=== PATIENT | female | born 1965 | race Caucasian/White ===

== ENCOUNTER 2020-11-14 10:58 | Observation (INO) | payer MEDICAID, SELFPAY ==
[2020-11-14] VITALS (41 sets, daily range): BP systolic 112–134; BP diastolic 45–87; PULSE 63–94; RESP 12–22; TEMP 36.4–36.9; O2SAT 96–100
--- NOTE | 2020-11-14 10:45 | RT.EKG_ITS ---
APPROVED REPORT Exam: Resting ECG Patient Location: E HR:82 bpm ECG Measurements Heart Rate 82 AXIS [place] 143 P 47 QRSd 89 QRS 59 QT 359 T -17 QTc 421 Conclusion Sinus rhythm...normal P axis, V-rate 60- [address] [place] [address] depression, lateral leads, nonspecific No STEMI
--- NOTE | 2020-11-14 10:59 | ED.GENADUL_ITS ---
Discharge Plan Disposition Patient Disposition: [facility] INPATIENT Condition: Stable Discharge Details Clinical Impression: Chest discomfort, Light-headedness, Numbness and tingling in left arm Primary Care Provider: Joyce Arroyo ED Provider: Manoj Roberts Luther Meds and New Rx's Prescriptions: No Action cholecalciferol (vitamin D3) [Vitamin D3] 2,000 UNIT capsule 2,000 unit PO DAILY RF: 0 cyclobenzaprine 10 MG tablet 10 mg PO TID PRN PRNQty: 20 RF: 0 naproxen 500 MG tablet 500 mg PO BID PRN PRNQty: 30 RF: 0 Medical Decision Making 55-year-old female with no significant past medical history but family history of cardiac disease presenting with lightheadedness nausea left chest shoulder discomfort with numbness in the left arm. Symptoms have since resolved. EKG concerning for ST changes laterally and less so inferiorly. No previous EKG to compare to. Asymptomatic in ED. Aspirin ordered. Cardiac labs and chest x-ray ordered. IV established. Will repeat EKG when she returns from chest x-ray. With ST changes present no old to compare strongly consider admission for furt her work-up. Laboratory studies unremarkable. Chest x-ray normal. Repeat EKG about an hour after the first shows normalization of the precordial lateral lead depression previously there. Patient has remained asymptomatic in the department. Case discussed with hospitalist. Will keep in ED for a repeat second troponin. If negative admit here for further work-up. If positive attempt to transfer to tertiary center. Repeat troponin remains flat. Third EKG unchanged from second. Only first EKG had ST depression in the lateral precordial leads. Patient asymptomatic here. Patient accepted for admission to hospitalist service. HPI General Mode of arrival: ambulatory . Date/Time Provider Initiated Documentation: 11/14/20 10:59 . Limitations to Documentation: no limitations . Information obtained by: patient, RN notes reviewed and old records reviewed . HPI Narrative: Patient presents to ED with episode of lightheadedness, nausea, discomfort in the left upper chest/shoulder with numbness and tingling in the left arm while driving. Symptoms have since resolved since arriving in the ED. Patient reports similar lightheadedness and tingling in left arm on Friday but did not experience any nausea or discomfort. She has not had anything similar to this in the past. She does not smoke. She has no history of elevated cholesterol, hypertension, diabetes. There is a strong family history of cardiac disease. She denies any leg pain or leg swelling. She does not feel short of breath. She has no diaphoresis. She had no back or abdominal pain. Related Data Home Medications Medication Instructions Recorded Confirmed cholecalciferol (vitamin D3) 2,000 unit PO DAILY 06/07/13 11/14/20 [Vitamin D-3] cyclobenzaprine 10 mg PO TID PRN PRN #20 tab 06/07/13 11/14/20 naproxen 500 mg PO BID PRN PRN #30 tablet 06/07/13 11/14/20 Previous Rx's Medication Instructions Recorded cyclobenzaprine 10 mg PO TID PRN PRN #20 tab 06/07/13 naproxen 500 mg PO BID PRN PRN #30 tablet 06/07/13 Allergies Allergy/AdvReac Type Severity Reaction Status Date / Time No Known Allergies Allergy Unverified 11/14/20 11:03 Review of Systems Narrative: 06/07 Review of Systems completed and is negative except as stated above in HPI (Systems reviewed: Const, Eyes, ENT, Resp, CV, GI, , MSK, Skin, Neuro) [facility] Medical History Diverticulitis Surgical History No significant past surgical history Social History Smoking/Tobacco Use Status: Never Smoking risk assessment performed?: Yes Alcohol Intake: current Alcohol Intake frequency: 3 or more drinks per day Drug use: Never Substance use type: does not use Do you feel safe at home: Yes Do you feel safe in your relationship?: Yes Exam Narrative Exam Narrative: Const: WDWN female in NAD. HEENT: NC/AT. Normal facial exam. Eyes: Normal conjunctiva and sclera. Neck: Supple. Trachea midline. Lungs: Normal respiratory effort. Lungs are clear. Cor: RRR without murmur/gallop. Good radial pulses. GI: Soft. NT/ND. No guarding or rebound Neuro: A+O x 3. Normal speech, mentation, gait. Cranial nerves II - XII grossly intact. No gross motor or sensory deficit. Ext: No C/C/E. No calf tenderness. Skin: Warm and dry without rash.
--- NOTE | 2020-11-14 11:15 | DI.RAD_ITS ---
EXAM: XR CHEST 2V PA LATERAL CLINICAL HISTORY: CP TECHNIQUE: 2D digital imaging was performed. COMPARISON: No exams were available for comparison FINDINGS: MEDIASTINUM: Normal. HEART: Normal. PULMONARY VASCULATURE: Normal. LUNGS: Clear. PLEURAL SPACE: No pleural effusion or pneumothorax. BONE:Within normal limits for the patient's age. OTHER FINDINGS:Normal. IMPRESSION: No acute pulmonary findings. DATA REPOSITORY: RADIATION DOSE DELIVERED:
[2020-11-14] MEDS: Aspirin 81 MG CHEW 324 MG CH (11:27)
--- NOTE | 2020-11-14 11:30 | RT.EKG_ITS ---
APPROVED REPORT Exam: Resting ECG Patient Location: E HR:72 bpm ECG Measurements Heart Rate 72 AXIS [place] 152 P 46 QRSd 83 QRS 69 QT 374 T 13 QTc 411 Conclusion Sinus rhythm...normal P axis, V-rate 60- [address] segments laterally. No STEMI
[2020-11-14 11:33] LABS: Abs Immature Grans 0.02 10^3/uL (0.0-0.06); Absolute Basophil Count 0.03 10^3/uL (0.0-0.2); Absolute Eosinophil Count 0.15 10^3/uL (0.0-0.7); Absolute Lymphocyte Count 2.11 10^3/uL (1.2-3.4); Absolute Monocyte Count 0.53 10^3/uL (0.1-0.8); Absolute Neutrophil Count 4.42 10^3/uL (1.2-6.7); Basophils % 0.4; Eosinophils % 2.1; HCT 42.8 % (36.0-46.0); HGB 14.7 g/dL (11.2-15.7); Immature Grans % 0.3; Lymphocytes % 29.1; MCH 30.8 pg (27.0-33.0); MCHC 34.3 % (32.0-36.0); MCV 89.7 fL (80-95); MPV 8.2 fL (8.0-11.0); Monocytes % 7.3; Neutrophils % 60.8; Nucleated RBC 0 %; Platelet Count 294 10^3/uL (130-400); RBC 4.77 10^6/uL (3.93-5.22); RDW 11.7 % (11.7-14.6); RDW-SD 38.4 fL; WBC 7.26 10^3/uL (4.4-10.8)
[2020-11-14 11:45] LABS: ALT 36 U/L (14-59); AST 20 U/L (15-37); Alkaline Phosphatase 81 U/L (46-116); Anion Gap 11.3 mmol/L (3-11); BUN 9 mg/dL (7-18); Bilirubin, Total 0.4 mg/dL (0.2-1.0); CO2 26.7 mmol/L (21.0-32.0); CREATININE 0.6 mg/dL (0.55-1.02); Chloride 102 mmol/L (98-107); Glucose 106 mg/dL (74-106); Potassium 3.7 mmol/L (3.5-5.1); Sodium 140 mmol/L (136-145); Total Protein 8.2 g/dL (6.4-8.2)
[2020-11-14 11:46] LABS: Troponin I < 0.05 ng/mL (<0.06)
[2020-11-14 12:04] LABS: D-Dimer 305 ng/mlFEU (<500)
--- NOTE | 2020-11-14 14:00 | RT.EKG_ITS ---
APPROVED REPORT Exam: Resting ECG Patient Location: E HR:70 bpm ECG Measurements Heart Rate 70 AXIS [place] 157 P 50 QRSd 83 QRS 71 QT 382 T 16 QTc 412 Conclusion Sinus rhythm...normal P axis, V-rate 60- 99 Normal [place] There are no significant changes compared to prior EKG performed on 11/14/2020 at 11:58.
[2020-11-14 14:21] LABS: Troponin I < 0.05 ng/mL (<0.06)
--- NOTE | 2020-11-14 17:43 | HPE_ITS ---
Date of service: 11/14/20 Time of Service: 17:43 Assessment and Plan Assessment and plan (1) Acute electrocardiogram changes: Status: Acute Assessment and plan: In setting of dizziness, palpitations, LUE tingling - concern for unstable angina vs Prinze-Metal angina. Monitor on tele, continue to trend troponins. Obtain echo in am. Depending on results will plan for MPI vs cardiac cath as outpatient. (2) Palpitations: Status: Acute Assessment and plan: Check TSH. ?side effect of the Ukrainian herbal medication the patient is taking. (3) Light-headedness: Status: Acute Assessment and plan: As above (4) Anxiety: Status: Chronic Assessment and plan: The patient needs to get plugged in with a new mental health provider. Hers has retired. Will ask care managers to provide resources. (5) Goiter: Status: Acute Assessment and plan: Check TSH/FT4 (6) DVT prophylaxis: Status: Acute Assessment and plan: SC enoxaparin, TEDs, SCDs (7) Discharge planning issues: Status: Acute Assessment and plan: DNI, per my conversation with her Obs History of Present Illness History of Present Illness Chief Complaint: chest discomfort Narrative: Ms Cartwright is a 55 year old female with PMHx of obesity, an eating disorder (bulemia), as well as a highly stressful personal situation (son committed suicide 1.5 years ago, stress at work) with strong family hx of CAD who presented to [facility] ED today after tingling in her left arm and lightheadedness while driving a car today. This was accompanied by palpitations and shortness of breath. The patient thougth she might pass out. She also describes the feeling as panicky. She was able to drive herself home and her spouse took her to the ED. The symptoms had resolved by the time the patient had presented to the ED. They lasted about 10-15 minutes. She had a similar episode 3 days ago while sitting and drinking coffee, but this one lasting several seconds. At no point did the patient report chest pain or chest discomfort to me (evidently, this was reported in the ED. The patient has had two negative troponins, but her original EKG showed inferolateral ST depressions which disappeared on EKG #2 and 3. The patient was given a full dose of aspirin in the ED. Hospitalists were asked to take over care. Review of Systems All systems reviewed & are unremarkable except as noted in HPI and below PFSH Medical History (Updated 11/14/20 @ 18:34 by Tayler Goodman MD) Diverticulitis Eating disorder Obesity (BMI 30.0-34.9) Surgical History (Updated 11/14/20 @ 18:23 by Tayler Goodman MD) No significant past surgical history S/P tonsillectomy Family History (Updated 11/14/20 @ 18:27 by Tayler Goodman MD) Mother , at age of 64 from an [place] Heart disease Diabetes Hypertension Father Heart disease Diabetes Hypertension Maternal Grandmother Diabetes Maternal Grandfather Diabetes Paternal Grandmother Diabetes Paternal Grandfather Diabetes Self No problems noted. Sister Diabetes Hypertension Sister Diabetes Hypertension Brother Diabetes Hypertension Paternal Aunt Breast cancer Social History (Updated 11/14/20 @ 18:28 by Tayler Goodman MD) Smoking/Tobacco Use Status: Never Smoking risk assessment performed?: Yes Alcohol Intake: current Alcohol Intake frequency: holidays/special occasions only Alcohol type: wine Drug use: Never Substance use type: does not use Do you feel safe at home: Yes Do you feel safe in your relationship?: Yes Meds Home Medications and Allergies Allergies Allergy/AdvReac Type Severity Reaction Status Date / Time No Known Allergies Allergy Unverified 11/14/20 11:03 Home Medications Medication Instructions Recorded Confirmed Type Jared Lopez PO DAILY 11/14/20 History Exam Narrative Exam Narrative: General: Anxious obese Female, very stephen, A&Ox3, tearful during some of our interview Neurological: A&Ox3, no focal deficits Psychiatric: anxious/tearful Skin: Stephen, no lesions HEENT: Atraumatic, normocephalic, EOMI, MMM, clear oropharynx, no submandibular or cervical lymphadenopathy, slight goiter, no JVD Cardiovascular: RRR, no m/r/g Lungs: CTAB Gastrointestinal: soft, nontender, nondistended Genitourinary: deferred Extremities: +1 BLE edema (chronic), no c/c. Results Imaging Additional studies: EKG #1: NSR, HR 82, inferolateral ST depressions. EKG #2: NSR, HR 72, no acute ischemia EKG #3: NSR, HR 70, no acute ischemia CXR: No acute pulmonary findings. Labs Result diagrams: 11/14/20 11:23 11/14/20 11:23 Labs: Laboratory Results - last 24 hr 11/14/20 11/14/20 11/14/20 11:23 11:23 11:23 WBC 7.26 RBC 4.77 Hgb 14.7 Hct 42.8 MCV 89.7 MCH 30.8 MCHC 34.3 RDW 11.7 Plt Count 294 MPV 8.2 Immature Gran % 0.3 Neutrophils % 60.8 Lymphocytes % 29.1 Monocytes % 7.3 Eosinophils % 2.1 Basophils % 0.4 Nucleated RBC % 0 Absolute Neutrophils 4.42 Absolute Lymphocytes 2.11 Absolute Monocytes 0.53 Absolute Eosinophils 0.15 Absolute Basophils 0.03 D-Dimer 305 Sodium 140 Potassium 3.7 Chloride 102 Carbon Dioxide 26.7 Anion Gap 11.3 H BUN 9 Creatinine 0.6 Estimated GFR/1.73 m2 >= 60.00 Glucose 106 Calcium 9.0 Magnesium 2.0 Total Bilirubin 0.4 AST 20 ALT 36 Alkaline Phosphatase 81 Troponin I < 0.05 Total Protein 8.2 Albumin 4.0 11/14/20 14:01 WBC RBC Hgb Hct MCV MCH MCHC RDW Plt Count MPV Immature Gran % Neutrophils % Lymphocytes % Monocytes % Eosinophils % Basophils % Nucleated RBC % Absolute Neutrophils Absolute Lymphocytes Absolute Monocytes Absolute Eosinophils Absolute Basophils D-Dimer Sodium Potassium Chloride Carbon Dioxide Anion Gap BUN Creatinine Estimated GFR/1.73 m2 Glucose Calcium Magnesium Total Bilirubin AST ALT Alkaline Phosphatase Troponin I < 0.05 Total Protein Albumin Last Vital Signs Temp 36.8 C 11/14/20 16:15 Pulse 65 11/14/20 16:15 Resp 16 11/14/20 16:15 BP 134/83 11/14/20 16:15 Pulse Ox 98 11/14/20 16:15 COVID-19 Screening Have you, or household traveled for leisure in last 14 days?: No Had IN PERSON contact w/suspected or confirmed C-19 person: No
[2020-11-14 20:34] LABS: Source Nasal/Nares
[2020-11-14 20:44] LABS: Troponin I < 0.05 ng/mL (<0.06)
[2020-11-14 22:39] LABS: COVID-19 PCR Negative (Negative)
[2020-11-15] VITALS (7 sets, daily range): BP systolic 104–122; BP diastolic 65–87; PULSE 66–89; RESP 14–18; TEMP 35.9–36.6; O2SAT 95–100
[2020-11-15 06:54] LABS: Hemoglobin A1C 5.7 % (<5.7)
[2020-11-15 07:03] LABS: BUN 10 mg/dL (7-18); CREATININE 0.6 mg/dL (0.55-1.02); Calcium 8.8 mg/dL (8.5-10.1); Calculated LDL 172 mg/dL (<100); Chloride 105 mmol/L (98-107); Cholesterol 264 mg/dL (<200); Glucose 95 mg/dL (74-106); HDL Cholesterol 77 mg/dL (40-60); Potassium 3.9 mmol/L (3.5-5.1); Sodium 142 mmol/L (136-145); TSH (W/Ref FT4) 2.11 uIU/mL (0.36-3.74); Triglyceride 79 mg/dL (<150)
--- NOTE | 2020-11-15 07:30 | RT.EKG_ITS ---
APPROVED REPORT Exam: Resting ECG Patient Location: I HR:69 bpm ECG Measurements Heart Rate 69 AXIS [place] 150 P 41 QRSd 88 QRS 64 QT 385 T 12 QTc 411 Conclusion Sinus rhythm...normal P axis, V-rate 60- 99
[2020-11-15] MEDS: Aspirin E.C. 81 MG TABEC PO (08:10)
--- NOTE | 2020-11-15 09:42 | PDOC.CMIN ---
- If Service Date Differs Date of service: 11/15/20 Time of Service: 09:42 Care Management Initial Assess REASON FOR HOSPITALIZATION:: Chest Pain PAST MEDICAL HISTORY/PAST SURGICAL HISTORY:: Medical History. Diverticulitis. Eating disorder. Obesity (BMI 30.0-34.9). Surgical History. No significant past surgical history. S/P tonsillectomy PREVIOUS FUNCTIONAL STATUS/SOCIAL/FAMILY SUPPORTS:: Karie lives in [place], alone. She moved to [place] 20 years ago with her son, who by suicide about a year ago. She has another son who lives in [place], and two grandchildren. She works for [employer], providing care for autistic clients. She is independent at baseline. CURRENT FUNCTIONAL STATUS:: Karie was sitting up in her chair when CM met with her. She reported that she has had a lot of stress in her life, which she feels is a large contributing factor that brought her to the hospital. She told CM about the untimely of her son, by suicide, and expressed that she has not yet processed all of the emotions that she feels about losing him so soon. She has a living son, who resides in [place], and he has two children that she loves, but she is still suffering with the grief of her loss. She also reported that she has a stressful job, and was working overnight (awake), which was too draining for her, and she recently set limits with her boss as it was unsustainable. She only works molded parts inspector, and lives alone. She reported that her therapist retired last fall, and she has yet to be connected to another. CM suggested [facility], but she reported that she wants to wait for her PCP office to hire another therapist for her convenience of location and appointments in the same building. CM called her PCP office, who will connect her to a radiology specialist within their network. CM connected Karie with [employer], to assist with her insurance needs. CM will continue to follow. ADVANCE DIRECTIVES:: None on file, CM will offer forms. Has patient been provided with info about the portal/API?: Yes Did the patient sign up for the portal?: No CODE STATUS:: DNI INSURANCE COVERAGE / FINANCIAL ISSUES:: Self pay. CM will send a referral to [facility] and provide financial assistance packet. CURRENT HOME/COMMUNITY SERVICES/EQUIPMENT:: No current services or equipment. PRIMARY CARE PHYSICIAN:: Joyce Arroyo POTENTIAL DISCHARGE NEEDS:: Referral to [facility], [facility]- insurance needs, follow up appointments PATIENT/FAMILY EDUCATION NEEDS:: Review discharge instructions regarding activity levels and medications, discussion of self care needs. ANTICIPATED BARRIERS TO DISCHARGE:: None identified. TRANSPORTATION:: Via private vehicle by family. PLAN:: Anticipate Karie will return home when medically cleared by MD. CM will send a referral to [facility] for insurance needs, as well as [facility] for mental health counseling. She will be driven home via private vehicle by family. She will follow up with her PCP and discharge plan of care. CM will continue to follow.
[2020-11-15] MEDS: Normal Saline Flush 10 ML SYR IVP ×2 (11:08→16:59)
--- NOTE | 2020-11-15 14:20 | CHAPLAIN ---
Karie was sitting up in a chair then I visited. She told me she was feeling better. She'd come into the ED last night not feeling well. During our conversation she said that her son by suicide a year and three months ago while she was in [place]. She had been attending a support group in [place], for suicide survivors, but the group stopped meeting due to COVID precautions. Karie thinks the group maybe be meeting on line now or starting to meet person, outside and she is going to look into that. Karie lives in [place], and belongs to the [employer] hol[employer], according to our spiritism roster. She said that her holiness knows she is here and many people from many different places are praying for her. She sees whatever is going on with her now, as part of God's plan for her. She has another son who lives out of state he and his will be having their second baby soon. her brought her to the ED. Karie asked for a copy of [employer], which I gave her, along with a prayer shawl.
--- NOTE | 2020-11-15 14:53 | W.PM.PROGNOT ---
Date of Service Date of service: 11/15/20 Time of Service: 14:55 Assessment and Plan Assessment and plan (1) Acute electrocardiogram changes: Status: Acute Assessment and plan: In setting of dizziness, palpitations, LUE tingling - concern for unstable angina vs Prinze-Metal angina. Continue to monitor on tele. NPO for stress test in am. Add statin due to hyperlipidemia on fasting panel. (2) Palpitations: Status: Resolved Assessment and plan: TSH ok. Continue to monitor on tele. ? anxiety +/- side effect of the Micronesian herbal medication the patient is taking. (3) Light-headedness: Status: Resolved Assessment and plan: As above (4) Hyperlipidemia: Status: Acute Assessment and plan: start atorvastatin (5) Anxiety: Status: Chronic Assessment and plan: Outpatient mental health referral has been set up (6) Goiter: Status: Chronic Assessment and plan: TSH ok. Follow up as outpatient. (7) DVT prophylaxis: Status: Acute Assessment and plan: SC enoxaparin, TEDs, SCDs (8) Discharge planning issues: Status: Acute Assessment and plan: DNI, per my conversation with her Keep in Obs status Subjective Subjective Interval history since last seen: Ms Cartwright had not had any arrhythmic events on tele and has not had any more sx. She denies dizziness, chest pain, shortness of breath, nausea. She spoke with care management - an outpatient mental health referral has been placed. Exam Narrative Exam Narrative: General: Anxious obese Female, laying comfortably in bed,napping, easily arousable HEENT: EOMI, MMM Cardiovascular: RRR, no m/r/g Lungs: CTAB Gastrointestinal: soft, nontender, nondistended Extremities: +1 BLE edema (chronic), no c/c. Objective Last Vital Signs Temp 35.9 C L 11/15/20 10:48 Pulse 85 11/15/20 10:48 Resp 14 11/15/20 10:48 BP 122/87 11/15/20 10:48 Pulse Ox 100 11/15/20 10:48 Laboratory Results - last 24 hr 11/14/20 11/14/20 11/15/20 15:30 20:15 06:10 Sodium 142 Potassium 3.9 Chloride 105 Carbon Dioxide 27.0 Anion Gap 10.0 BUN 10 Creatinine 0.6 Estimated GFR/1.73 m2 >= 60.00 Glucose 95 Hemoglobin A1c Calcium 8.8 Magnesium 2.0 Troponin I < 0.05 Triglycerides 79 Total Cholesterol 264 H LDL Cholesterol, Calc 172 H HDL Cholesterol 77 TSH 2.11 COVID-19 Source Nasal/nares SARS-CoV-2 (PCR) Negative 11/15/20 06:10 Sodium Potassium Chloride Carbon Dioxide Anion Gap BUN Creatinine Estimated GFR/1.73 m2 Glucose Hemoglobin A1c 5.7 Calcium Magnesium Troponin I Triglycerides Total Cholesterol LDL Cholesterol, Calc HDL Cholesterol TSH COVID-19 Source SARS-CoV-2 (PCR) Objective Narrative Objective Narrative: Echo: LVEF 60%, no LV wall motion abnromalities, RVSP 27 mmHg, mitral annular calcifications, mild mitral regurgitation.
[2020-11-15] MEDS: Atorvastatin 40 MG TAB PO (20:02)
[2020-11-16] MEDS: Normal Saline 1,000 ML 150 ML IV ×2 (05:15→11:36)
[2020-11-16 07:24] VITALS: BP 122/76; PULSE 67; RESP 19; TEMP 36.7; O2SAT 97
--- NOTE | 2020-11-16 08:00 | DI.NM_ITS ---
APPROVED REPORT Exam: Exercise Treadmill Patient Location: In-Patient Room/Bed: [facility] Stress Nurse: Kayce Vazquez RN Ordering Provider:GRAZYNA GONZALES, Contact Number: BMI: 32.57 Baseline Rhythm: Sinus Rhythm Comment: occasional PVC Indications: EKG CHANGES Medical History Medical History: HLD, Palpitations, Anxiety Cardiac Medications: None. Allergies: No known drug allergies Cardiac Risk Factors: Hyperlipidemia, FHX of CAD Previous Cardiac Procedures: None. Pretest Chest Pain Characteristics: None. Exercise History: Physically active Physical Disabilities: None. Lung Sounds: Clear to auscultation Heart Sounds: Regular Stress Test Details Test: Exercise stress testing was performed using a Claudio protocol. Nuclear Acquisition: Rest Tc-99m/Stress Tc-99m 1 day Rest Isotope: Tc-99m Sestamibi. Dose: 10.8 Date: 11/16/20 Injection Time: 1315 Stress Isotope: Tc-99m Sestamibi. Dose: 36.8 Date: 11/16/20 Injection Time: 1510 HR Resting HR Supine: 72 bpm Max Heart Rate (APMHR): 167 bpm Resting HR Standin bpm Target HR (85% APMHR): 141 bpm Max HR Achieved: 167 bpm % of APMHR: 100 Recovery HR: 87 bpm HR response to stress: Normal HR response to stress BP Resting BP Supine: 120/82 mmHg Resting BP Standin/88 mmHg Max BP: 154/78 mmHg Recovery BP: 116/76 mmHg BP response to stress: Normal blood pressure response to stress. ECG Resting ECG: Sinus Rhythm Ectopy: occasional PVC. Stress ECG: Sinus Tachycardia ST Change: No significant ST segment changes noted Arrhythmia: PVCs, couplets Recovery ECG: Sinus Rhythm Recovery ST Change: No significant ST segment changes noted Recovery Arrhythmia: occasional PVC Clinical Reason for Termination: Dizziness Stress Symptoms: Dizziness Exercise duration: 10 min00 sec Highest Stage Reached: Stage 4: 4.2 mph at 16% grade. Exercise capacity: 11.78 METs Fallon Treadmill Score: 9.2 Rate Pressure Product: [id number] Stress ECG Conclusion 1. Patient exercised for 10 minutes (12 METS). Patient had dizziness associated with exertion. 2. The patient's blood pressure and heart rate augmented appropriately with exertion. 3. There is no evidence of ischemia on the ECG portion of the exam. Fallon Treadmill Score is 9.2 which is Low risk. Stress Test Summary STAGE Time (mins) Speed (mph) Grade (%) HR BP SYMPTOMS METS Supine 72 120/82 Standing 82 124/88 1 3 1.7 10 114 126/80 4.6 2 6 2.5 12 130 7 3 9 3.4 14 152 136/88 10.2 4 12 4.2 16 Dizziness 12.9 1 min recovery 132 154/78 Symptoms resolved when exercise stopped. 3 min recovery 98 132/78 6 min recovery 87 116/76 MPI Conclusion Patient's ejection fraction was 63% with stress. There were no wall motion abnormalities. There was no evidence of ischemia on the imaging portion of the exam. This represents a normal SPECT stress test.
[2020-11-16 11:16] VITALS: BP 121/85; PULSE 75; RESP 18; TEMP 36.7; O2SAT 97
[2020-11-16 12:34] VITALS: PULSE 84
--- NOTE | 2020-11-16 14:15 | W.NUTRFU ---
Date of service: 11/16/20 Time of Service: 14:16 Nutritional Follow up NOTE: Pt admitted with chest pain. BMI indicates mild obesity. Following heart healthy diet with adequate intake. Not at nutritional risk at this time. Will continue to follow. Time Spent in Nutritional Counseling and Treatment: 0
--- NOTE | 2020-11-16 15:46 | DSE_ITS ---
Date of service: 11/16/20 Time of Service: 15:46 DS: Diagnosis Discharge Diagnosis (1) Acute electrocardiogram changes: Start date: 11/16/20 Start time: 15:47 Status: Acute Asessment and Plan: Admitted with dizziness, palpitations, LUE tingling, she was on tele, trops were negative, echo Left Ventricle The left ventricle is normal size. The left ventricular systolic function is normal. The left ventricular ejection fraction is within the normal range. There is normal left ventricular wall thickness. There is normal LV segmental wall motion. There is no ventricular septal defect visualized. LVEF is 60%. Right Ventricle The right ventricle is normal size. The right ventricular systolic function is normal. The RVSP is 26.9 mmHg. Atria The left atrium size is normal. The right atrium size is normal. The interatrial septum is intact with no evidence for an atrial septal defect. Aortic Valve The aortic valve is normal in structure. Aortic valve is trileaflet. There is no aortic valvular stenosis. Trace aortic regurgitation. Mitral Valve Mild mitral annular calcification. No evidence of mitral valve stenosis. Trace to mild mitral regurgitation. Tricuspid Valve The tricuspid valve is normal in structure. There is no tricuspid valve stenosis. Trace to mild tricuspid regurgitation. Pulmonic Valve The pulmonary valve is normal in structure. There is no pulmonic valvular stenosis. Trace pulmonic regurgitation. Great Vessels The aortic root is normal in size. The ascending aorta is normal in size. Aortic arch is normal in caliber. IVC is normal in size and collapses >50% with inspiration. The patient did experience dizziness on the treadmill but it disappeared when exam was over otherwise EF was 63%. Nuc stress normal (2) Hyperlipidemia: Start date: 11/16/20 Start time: 16:15 Status: Acute Asessment and Plan: Continue medication (3) Anxiety: Start date: 11/16/20 Start time: 16:15 Status: Chronic Asessment and Plan: Continue to find an outpatient therpaist to treat anxiety Above case discussed with Dr. goodman who is in agreement. Discharge Plan Disposition Patient Disposition: HOME Condition: Stable Discharge Details Reason For Visit: CHEST PAIN Admit Date/Time: 11/14/20 14:29 Admit Provider: Tayler Goodman Attending Provider: Tayler Goodman Primary Care Provider: Joyce Arroyo Hospital Course Hospital Course: 55 y.o female with PMH of obesity, eating disorder, and stressful home situations, with strong family hx of CAD, who was admitted to [facility] ED with tingling, to her left arm, and lightheadedness while driving her car. She had stated it was accompained with palpitations and SOB. She stated she felt panicky and like she was going to pass out. She drove home and was brought to the ED by her spouse. She was admitted for further work up. She did have a EKG in the ED that showed inferolateral ST depressions but were not present on EKG #2 and 3. Trops were negative, Due to EKG she was admitted for Echo and stress. She was given asa and stress test today revealed normal NPI. No ischemia. She should follow up as an outpatient with her PCP if this continues. This could be anxiety driven. She denies CP, SOB , N/V/D Home Meds and New Rx's Prescriptions: No Action Da Lonnie Lopez PO DAILY RF: 0 Discharge Instructions Instructions: Chest Pain (DC), Anxiety (DC) Additional Instructions: Follow up with your PCP if this continues to happen, this is not cardiac related All cardiac testing was negative. Stand Alone Forms: Nursing Discharge Form Activity:: Activity as Tolerated Equipment/Supplies:: No Equipment Needed Diet:: As Tolerated Discharge Orders Discharge Orders: Discharge Order (Routine); Ordered 11/16/20 Ordered By: Brianna Mondragon DS: Summary Time Spent with Patient providing and/or coordinating discharge services: Greater than 30 minutes Status at Discharge Functional status at discharge: independent ambulation Overall status at discharge: patient is back to baseline Mental Status: mental status grossly normal Speech and Movement: speech and movement normal Mood: congruent mood Affect: normal affect Exam Narrative Exam Narrative: General: Pleasant obese Female, laying comfortably in bed,napping, easily arousable HEENT: EOMI, MMM Cardiovascular: RRR, no m/r/g Lungs: CTAB Gastrointestinal: soft, nontender, nondistended Extremities: +1 BLE edema (chronic), no c/c. Psych Mental Status: mental status grossly normal Speech and Movement: speech and movement normal Mood: congruent mood Affect: normal affect DS: Data Vitals/I&O Vitals and I&O: Vital Signs Temperature 36.7 C 11/16/20 11:16 Temperature Source Temporal Artery Scan 11/16/20 11:16 Pulse 75 11/16/20 11:16 Pulse Rhythm Regular 11/16/20 08:16 Pulse 63 11/14/20 15:30 Respiratory Rate 18 11/16/20 11:16 Respiratory Effort 11/16/20 08:16 Respiratory Depth Normal 11/16/20 08:16 Respiratory Pattern Normal 11/16/20 08:16 Blood Pressure 121/85 11/16/20 11:16 Blood Pressure Mean 92 11/14/20 13:01 Blood Pressure Position Sitting 11/14/20 11:00 Pulse Oximetry 97 11/16/20 11:16 Oxygen Delivery Method Room Air 11/16/20 11:16 Oxygen Flow Rate 0 11/16/20 11:16 Pain Level 0 11/16/20 11:16 Comment 11/15/20 07:04 Intake & Output 11/15/20 11/16/20 11/16/20 23:59 11:59 23:59 Intake Total 730 / 1730 1152.5 / 1152.5 Output Total 1800 / 3050 1600 / 1600 Balance -1070 / -1320 -447.5 / -447.5 Weight 93.894 kg Intake: IV 952.5 / 952.5 Oral 720 / 1720 200 / 200 Output: Urine 1800 / 3050 1600 / 1600 Other: Urine Color Yellow Light Lore Urine Appearance Clear Clear Urine Odor Normal Normal Comment FOUND 900CC CLEAR YELLOW URINE IN HAT IN TOILET. Voiding Methods Toilet Toilet Data Completed and Pending Completed studies during hospitalization [Text1]: EXAM: Comprehensive 2D, Doppler, and color-flow Echocardiogram Patient Location: In-Patient Room/Bed: [facility] Watch And Clock Maker And Repairer: Portia Melo RDCS (AE) Indications: Abnormal EKG, Palpitations, F/H CAD Other Information Study Quality: Adequate Wall motion Left Ventricle The left ventricle is normal size. The left ventricular systolic function is normal. The left ventricular ejection fraction is within the normal range. There is normal left ventricular wall thickness. There is normal LV segmental wall motion. There is no ventricular septal defect visualized. LVEF is 60%. Right Ventricle The right ventricle is normal size. The right ventricular systolic function is normal. The RVSP is 26.9 mmHg. Atria The left atrium size is normal. The right atrium size is normal. The interatrial septum is intact with no evidence for an atrial septal defect. Aortic Valve The aortic valve is normal in structure. Aortic valve is trileaflet. There is no aortic valvular stenosis. Trace aortic regurgitation. Mitral Valve Mild mitral annular calcification. No evidence of mitral valve stenosis. Trace to mild mitral regurgitation. Tricuspid Valve The tricuspid valve is normal in structure. There is no tricuspid valve stenosis. Trace to mild tricuspid regurgitation. Pulmonic Valve The pulmonary valve is normal in structure. There is no pulmonic valvular stenosis. Trace pulmonic regurgitation. Great Vessels The aortic root is normal in size. The ascending aorta is normal in size. Aortic arch is normal in caliber. IVC is normal in size and collapses >50% with inspi ration. Stress ECG Conclusion 1. Patient exercised for 10 minutes (12 METS). Patient had dizziness associated with exertion. 2. The patient's blood pressure and heart rate augmented appropriately with exertion. 3. There is no evidence of ischemia on the ECG portion of the exam. Fallon Treadmill Score is 9.2 which is Low risk. Stress Test Summary STAGE Time (mins) Speed (mph) Grade (%) HR BP SYMPTOMS METS Supine 72 120/82 Standing 82 124/88 1 3 1.7 10 114 126/80 4.6 2 6 2.5 12 130 7 3 9 3.4 14 152 136/88 10.2 4 12 4.2 16 Dizziness 12.9 1 min recovery 132 154/78 Symptoms resolved when exercise stopped. 3 min recovery 98 132/78 6 min recovery 87 116/76 MPI Conclusion Patient's ejection fraction was 63% with stress. There were no wall motion abnormalities. There was no evidence of ischemia on the imaging portion of the exam. This represents a normal SPECT stress test. Pericardium There is no pericardial effusion. [facility] Medical History (Updated 11/15/20 @ 15:27 by Tayler Goodman MD) Diverticulitis Eating disorder Obesity (BMI 30.0-34.9) Surgical History (Updated 11/14/20 @ 18:23 by Tayler Goodman MD) No significant past surgical history S/P tonsillectomy Family History (Updated 11/14/20 @ 18:27 by Tayler Goodman MD) Mother , at age of 64 from an [place] Heart disease Diabetes Hypertension Father Heart disease Diabetes Hypertension Maternal Grandmother Diabetes Maternal Grandfather Diabetes Paternal Grandmother Diabetes Paternal Grandfather Diabetes Self No problems noted. Sister Diabetes Hypertension Sister Diabetes Hypertension Brother Diabetes Hypertension Paternal Aunt Breast cancer Social History (Updated 11/14/20 @ 18:28 by Tayler Goodman MD) Smoking/Tobacco Use Status: Never Smoking risk assessment performed?: Yes Alcohol Intake: current Alcohol Intake frequency: holidays/special occasions only Alcohol type: wine Drug use: Never Substance use type: does not use Do you feel safe at home: Yes Do you feel safe in your relationship?: Yes
[2020-11-16 15:59] VITALS: BP 122/85; PULSE 84; RESP 18; TEMP 36.9; O2SAT 98
== END 2020-11-16 17:07 | disposition home or self-care (01) ==
LOC: ER 15:11 → MS 15:57
PROVIDERS: Admitting Provider Internal Medicine; Emergency Provider Emergency Medicine; PCP Family Medicine; Visit Provider Internal Medicine
DX: R00.2 Palpitations (principal); R94.31 Abnormal electrocardiogram [ECG] [EKG]; R42 Dizziness and giddiness; F41.9 Anxiety disorder, unspecified; E78.5 Hyperlipidemia, unspecified; E66.9 Obesity, unspecified; F50.2 Bulimia nervosa; Z68.32 Body mass index [BMI] 32.0-32.9, adult
CPT/HCPCS: 36415; 78452; 80048; 80053; 80061; 87635; 93005; 99217; 99220; 99225; 99285; 71046; 83036; 83735; 84443; 84484; 85025; 85379; 93010; 93017; 93306

== ENCOUNTER 2021-04-13 16:15 | Outpatient (REF) | payer SELFPAY ==
--- NOTE | 2021-04-13 13:30 | PAPFT_PTH ---
PATIENT: Karie Cartwright LOC: [facility]#:[id number] AGE/SX: 56/F ROOM: RE04/13/[address]: Joyce Arroyo : 1965 BED: DIS: 04/13/2021 SPEC #: [id number] RECD: 04/16/21 12:52 STATUS: RUBYTheodora REQ #: [id number] SHAHLA: 04/13/21 13:[address]: Joyce Arroyo DEPT: [facility] Cytology RECD BY: Modesta So Tissues: 1 - CX/ENDOCX FOR PAP SMEARS Procedures: PAP THIN PREP/UVM Screening HPV DNA PROBE Comments: [id number] (HPV 16 & 18/45)
== END 2021-04-13 16:16 | disposition home or self-care (01) ==
LOC: NCHCN 16:15
PROVIDERS: PCP Family Medicine; Visit Provider Family Medicine
DX: Z00.00 Encounter for general adult medical examination without abnormal findings (principal); Z12.4 Encounter for screening for malignant neoplasm of cervix; Z11.51 Encounter for screening for human papillomavirus (HPV); R87.810 Cervical high risk human papillomavirus (HPV) DNA test positive
CPT/HCPCS: 88142; 87624

== ENCOUNTER 2022-09-11 12:04 | Outpatient (REF) | payer MEDICAID, SELFPAY ==
--- NOTE | 2022-09-11 17:15 | PAPFT_PTH ---
PATIENT: Karie Cartwright LOC: [facility] U#:[id number] AGE/SX: 57/F ROOM: RE09/11/[address]: Joyce Arroyo : 1965 BED: DIS: 09/11/2022 SPEC #: [id number] RECD: 09/12/22 12:57 STATUS: ECHO REQ #: [id number] SHAHLA: 09/11/22 17:[address]: Joyce Arroyo DEPT: [facility] Cytology RECD BY: Modesta So Tissues: 1 - CX/ENDOCX FOR PAP SMEARS Procedures: PAP THIN PREP/UVM Screening HPV DNA PROBE Comments: [id number]
== END 2022-09-11 12:05 | disposition home or self-care (01) ==
LOC: NCHCN 12:04
PROVIDERS: PCP Family Medicine; Visit Provider Family Medicine
DX: Z12.4 Encounter for screening for malignant neoplasm of cervix (principal); Z11.51 Encounter for screening for human papillomavirus (HPV)
CPT/HCPCS: 88142; 87624

== ENCOUNTER 2023-09-16 12:40 | Outpatient (REF) | payer MEDICAID, SELFPAY ==
[2023-09-17 10:26] LABS: Varicella IgG Antibody Positive (See Note)
== END 2023-09-16 12:41 | disposition home or self-care (01) ==
LOC: NCHCN 12:40
PROVIDERS: PCP Family Medicine; Visit Provider Family Medicine
DX: Z20.820 Contact with and (suspected) exposure to varicella (principal); Z76.89 Persons encountering health services in other specified circumstances
CPT/HCPCS: 86787

== ENCOUNTER 2024-09-08 03:21 | Emergency (ER) | payer MEDICAID, SELFPAY ==
[2024-09-08] VITALS (25 sets, daily range): BP systolic 112–139; BP diastolic 74–90; PULSE 66–99; RESP 12–18; TEMP 37.1; O2SAT 94–99
--- NOTE | 2024-09-08 03:15 | RT.EKG_ITS ---
APPROVED REPORT Exam: Resting ECG Reason for Exam: arm pain Patient Location: E HR:77 bpm ECG Measurements Heart Rate 77 AXIS WI 134 P 41 QRSd 89 QRS 61 QT 370 T -1 QTc 420 Conclusion Sinus rhythm...normal P axis, V-rate 60- 99 Physician: no stemi
--- NOTE | 2024-09-08 03:30 | DI.CT_ITS ---
Exam(s) CT THORAX CTA EXAM: CT THORAX CTA CLINICAL HISTORY: severe ripping right chest and shoulder pain. TECHNIQUE: Imaging Protocol: Axial CT angiography was performed with multi-slice acquisition and mu lti-planar reconstructions as well as axial, coronal and sagittal MIP reconstructions. Computer aided detection (CAD) was utilized. CONTRAST MATERIAL: Intravenous: Omnipaque 350 Contrast volume:100 ml COMPARISON: CR XR CHEST 2V PA LATERAL from 11/14/2020 FINDINGS: Pulmonary Arteries: No evidence of filling defect to suggest pulmonary emboli. Mediastinum and Marielos: No dominant adenopathy or fluid collection. Pulmonary parenchyma: No consolidation or dominant measurable mass. Pleura: No effusion or pneumothorax. Heart: The heart is not dilated. No coronary artery calcifications are seen. Aorta: Thoracic aorta non-dilated. No dissection. Upper abdomen: No acute findings. Bones: Calcification anterior to the right humeral head consistent with calcific tendinosis. Other t iny calcification noted posterior to the left humeral head. Spine is unremarkable. Tubes, Catheters, and Lines: None Soft tissues: Unremarkable. IMPRESSION: No acute. No evidence of pulmonary embolism or aortic dissection. RADIATION DOSE DELIVERED: 202.4mGy.cm Total DLP DATA REPOSITORY: All CT scans at this facility are submitted to the National Radiology Data Registry (NRDR) Dose Index Registry (DIR) with the [employer] (A[employer]). RADIATION OPTIMIZATION: All CT scans at this facility use at least one of these dose optimization te chniques: automated exposure control; mA and/or kV adjustment per patient size (includes targeted exa ms where dose is matched to clinical indication); or iterative reconstruction.
[2024-09-08] MEDS: Lidocaine 5% Patch 1 PATCH TP (03:57)
[2024-09-08] MEDS: Ketorolac 15 MG/ML VIAL IVP (03:58)
--- NOTE | 2024-09-08 04:07 | W.ED.GENAD ---
Discharge Plan Disposition Patient Disposition: Home Condition: Good Discharge Details Clinical Impression: Calcific tendinitis of right shoulder, Transaminitis Primary Care Provider: Joyce Arroyo ED Provider: Beau Quezada Home Meds and New Rx's Prescriptions: New lidocaine [Lidoderm] 5 % adhesive patch,medicated 1 patch Topical Q24H Qty: 15 0RF Discharge Instructions Instructions: Calcific Tendinopathy of the Shoulder (DC) Additional Instructions: At this time your symptoms are concerning for calcific tendinitis. Please apply ice to your shoulder frequently. Please use the Voltaren gel every 8 hours on your shoulder. Please take Motrin/ibuprofen for your pain. Please apply the Lidoderm patches as prescribed. Please avoid taking Tylenol secondary to your elevated liver numbers. Use the sling only as needed for comfort. Please try to move your shoulder regularly to prevent frozen shoulder syndrome. We have placed a referral with our torpedo specialist. Please follow-up with them when they contact you for an appointment time. Additionally your liver numbers were elevated, we have sent a hepatitis screening panel. These results will come back in a few days. Please follow-up closely with your primary care provider for review of these results, as well as repeat checking of your liver numbers. If you notice any worsening of your symptoms, or any new symptoms such as vomiting, diarrhea, fever, chills, shortness of breath, chest pain, numbness, weakness, or fainting , please return immediately to the emergency department for reevaluation. Please follow up with your primary care provider as soon as possible for reassessment and reevaluation. As always, it was a pleasure participating in your medical care today. Referrals: Joyce Arroyo [Primary Care Provider] - [facility] General Date/Time Provider Initiated Documentation: 09/08/24 03:27. HPI Narrative: This is a 59-year-old female who denies any significant past medical history who presents today for evaluation of right shoulder pain. Patient states that she was feeling fine yesterday, and then at around midnight she woke with sharp stabbing right shoulder pain that radiates to the right chest. It is worse with movement. She describes it as a tearing like sensation. It radiates to her right neck as well. Symptoms are made worse with activity, but also with movement of the shoulder. She denies any focal shortness of breath. She did admit to a very mild headache earlier today which is relatively benign now. She denies any history of tobacco use, heart disease, or other vascular problems. She does admit to a strong family history of coronary artery disease. She denies any new or atypical workouts or movements that occurred today. She denies any trauma to the shoulder. She denies any previous injuries. No other complaints at this time. Related Data Home Medications ?Medication ?Instructions ?Recorded ?Confirmed lidocaine 5 % topical patch 1 patch topical Q24H #15 ea 09/08/24 (Lidoderm) Previous Rx's ?Medication ?Instructions ?Recorded lidocaine 5 % topical patch 1 patch topical Q24H #15 ea 09/08/24 (Lidoderm) Allergies Allergy/AdvReac Type Severity Reaction Status Date / Time No Known Allergies Allergy Unverified 09/08/24 03:25 General Stated Complaint: Orthopedic BILL: 3 Exam Narrative Exam Narrative: 1.Const: Well-nourished, Well-developed, appearing stated age 2.Eyes: PERRL, no conjunctival injection, and symmetrical lids. 3.ENT: Atraumatic external nose and ears. Moist MM. Neck: Symmetric, trachea midline, No thyromegaly. 4.CVS: +S1/S2, Peripheral pulses 2+ and equal in all extremities. Brisk capillary refill in all extremities. 5.RESP: Unlabored respiratory effort. Clear to auscultation bilaterally. No wheezes rales or rhonchi 6.GI: Soft, Nontender/Nondistended, No hepatosplenomegaly. No guarding or rebound. 7.MSK: Normocephalic/Atraumatic, Extremities w/o deformity. Right shoulder demonstrates no atypical warmth redness or swelling. She has pain on palpation of the proximal humerus, shoulder throughout, and the posterior aspect. She has pain with range of motion in any direction. Distal exam demonstrates no mid or distal humeral or forearm tenderness. Normal hand and elbow movements. Radial pulse +2 bilaterally, with brisk capillary refill of the fingers and normal sensation. 8.Skin: Warm, Dry. No rashes or lesions. 9.Neuro: asphalt worker II-XII grossly intact. Sensation grossly intact, no focal neurologic deficits. 10.Psych: (AAO) x3. Appropriate mood and affect Course Vital Signs Vital signs: Vital Signs Temperature 37.1 C 09/08/24 03:27 Pulse 99 H 09/08/24 03:27 Respiratory Rate 18 09/08/24 03:27 Blood Pressure 139/74 09/08/24 03:27 Pulse Oximetry 99 09/08/24 03:27 Temperature 37.1 C 09/08/24 03:27 Temperature Source Oral 09/08/24 03:27 Pulse 99 H 09/08/24 03:27 Respiratory Rate 18 09/08/24 03:27 Blood Pressure 139/74 09/08/24 03:27 Blood Pressure Position Sitting 09/08/24 03:27 Pulse Oximetry 99 09/08/24 03:27 Oxygen Delivery Method Room Air 09/08/24 03:27 Oxygen Flow Rate 0 09/08/24 03:27 Pain Level 10 09/08/24 03:32 Procedure EJ/Peripheral IV/Phlebotomy Date of Procedure: 09/08/24 Time of Procedure: 04:50 Indication: Nursing/tech could not get IV Skin Cleansed in Sterile Fashion: Yes Laterality: Left Insertion Site: Antecubital Size & Type: 20 ga. Number ofAttempts(See previous attempts in note section): 1 Dressing: IV Dressing Placed and Tegaderm Applied Ultrasound: Used/Image Saved Estimated Blood Loss: minimal Reason for Blood Draw by Provider: RN/lab unable Medical Decision Making This is a 59-year-old female who denies any significant past medical history who presents today for evaluation of right shoulder pain. Patient states that she was feeling fine yesterday, and then at around midnight she woke with sharp stabbing right shoulder pain that radiates to the right chest. It is worse with movement. She describes it as a tearing like sensation. It radiates to her right neck as well. Symptoms are made worse with activity, but also with movement of the shoulder. She denies any focal shortness of breath. She did admit to a very mild headache earlier today which is relatively benign now. She denies any history of tobacco use, heart disease, or other vascular problems. She does admit to a strong family history of coronary artery disease. She denies any new or atypical workouts or movements that occurred today. She denies any trauma to the shoulder. She denies any previous injuries. No other complaints at this time. Right shoulder demonstrates no atypical warmth redness or swelling. She has pain on palpation of the proximal humerus, shoulder throughout, and the posterior aspect. She has pain with range of motion in any direction. Distal exam demonstrates no mid or distal humeral or forearm tenderness. Normal hand and elbow movements. Radial pulse +2 bilaterally, with brisk capillary refill of the fingers and normal sensation. While physical exam findings certainly seem to suggest some musculoskeletal component, she has no history to suggest injury to the shoulder. Bursitis or arthritis is on the differential. No physical evidence on exam to suggest septic bursitis or septic joint. Cardiac etiology and dissection is certainly on the differential as well with no history of trauma to the shoulder. We will give nitroglycerin to see if this makes any change. We will give morphine NSAIDs and Lidoderm patch, get CT imagery to evaluate for vascular pathology, we will check an EKG, blood work, monitor closely and reassess. 7:[address] scan shows evidence of notable calcification over the anterior shoulder on the right, but the biceps tendon. This certainly correlates clinically with the suspicion for calcific tendinitis. Patient is feeling better after NSAID therapy Lidoderm patch but she still does certainly have residual pain. Laboratory workup has otherwise returned and is reassuring. No white count bandemia or left shift to suggest infection. Unexpectedly the patient's transaminases are notably elevated at 246 and 350 respectively. She denies excessive Tylenol use or excessive alcohol use. She denies any IV or illicit drug use. She denies any foreign travel or excessive seafood use. She denies any right upper quadrant tenderness or pain. We have sent a hepatitis panel. She has no right upper quadrant or hepatic pain. Bilirubin is normal. Recommend close outpatient follow-up for transaminases reassessment. Troponins are normal, EKG benign. Symptoms notably inconsistent with ACS. 7:[address] scan confirms calcific tendinitis. No other acute process. No dissection or other abnormalities. Patient stable and will be discharged home. Discussed red flags for which to return. I have extensively reviewed the treatment plan and discharge instructions with the patient. I have addressed all patient concerns at this time. The patient was made aware of what symptoms to monitor for that would warrant a return to the emergency department. Discussed the plan with the patient, they demonstrate verbal understanding and agreement with our assessment and plan at this time. The documentation in this chart was dictated using [facility] dictation software. Please excuse any dictation errors. FINDINGS: Pulmonary arteries: Normal. No pulmonary emboli. Aorta: Unremarkable. No aortic aneurysm. No aortic dissection. Lungs: Minimal dependent atelectasis. Pleural spaces: Unremarkable. No pneumothorax. No pleural effusion. Heart: Unremarkable. No cardiomegaly. No pericardial effusion. Lymph nodes: Unremarkable. No enlarged lymph nodes. Intestine: Colonic diverticulosis. Bones/joints: No acute fracture. An 8 mm calcification is seen medial to the right humeral head which may be related to calcific tendinitis Soft tissues: Unremarkable. IMPRESSION: No acute findings. No evidence of pulmonary emboli, aneurysm or dissection. Small calcification medial to the right humeral head which may be related to calcific tendinitis. Colonic diverticula . Thank you for allowing us to participate in the care of your patient. Dictated and Authenticated by: Deisy Connolly MD 09/08/2024 7:46 AM Eastern Time ([place] & [place]) Quality:SDOH Health Related Social Needs: No Data to Display PFSH All Active Problems (Updated 09/08/24 @ 07:13 by Beau Quezada DO) Transaminitis (Acute) Calcific tendinitis of right shoulder (Acute) Hyperlipidemia (Acute) Goiter (Chronic) Anxiety (Chronic) Acute electrocardiogram changes (Acute) Discharge planning issues (Acute) DVT prophylaxis (Acute) Chest discomfort (Acute) Numbness and tingling in left arm (Acute) Medical History (Updated 09/08/24 @ 07:13 by Beau Quezada DO) Eating disorder Obesity (BMI 30.0-34.9) Surgical History (Updated 11/14/20 @ 18:23 by Tayler Goodman MD) S/P tonsillectomy No significant past surgical history Family History (Updated 11/14/20 @ 18:27 by Tayler Goodman MD) Mother , at age of 64 from an [place] Heart disease Diabetes Hypertension Father Heart disease Diabetes Hypertension Maternal Grandmother Diabetes Maternal Grandfather Diabetes Paternal Grandmother Diabetes Paternal Grandfather Diabetes Self No problems noted. Sister Diabetes Hypertension Sister Diabetes Hypertension Brother Diabetes Hypertension Paternal Aunt Breast cancer Social History (Updated 11/14/20 @ 18:28 by Tayler Goodman MD) Smoking/Tobacco Use Status: Never Smoking risk assessment performed?: Yes Alcohol Intake: current Alcohol Intake frequency: holidays/special occasions only Alcohol type: wine Drug use: Never Substance use type: does not use Do you feel safe at home: Yes Do you feel safe in your relationship?: Yes
[2024-09-08 04:11] LABS: Abs Immature Grans 0.02 10^3/uL (0.0-0.06); Absolute Basophil Count 0.05 10^3/uL (0.0-0.2); Absolute Lymphocyte Count 1.84 10^3/uL (1.2-3.4); Absolute Monocyte Count 0.66 10^3/uL (0.1-0.8); Absolute Neutrophil Count 4.37 10^3/uL (1.2-6.7); Basophils % 0.7 %; Eosinophils % 2.8 %; Immature Grans % 0.3 %; Lymphocytes % 25.8 %; MCH 30.5 pg (27.0-33.0); MCHC 34.1 % (32.0-36.0); MCV 89 fL (80-95); MPV 8.2 fL (8.0-11.0); Monocytes % 9.2 %; Neutrophils % 61.2 %; Platelet Count 281 10^3/uL (130-400); RBC 4.92 10^6/uL (3.93-5.22); RDW 12.7 % (11.7-14.6); WBC 7.14 10^3/uL (4.4-10.8)
[2024-09-08 04:18] LABS: Lactate 1.5 mmol/L (0.6-1.4)
[2024-09-08] MEDS: MORPHine 4 MG/ML SYR IVP (04:23)
[2024-09-08] MEDS: nitroGLYcerin 0.4 MG TAB SL (04:23)
[2024-09-08] MEDS: Omnipaque 350 MG/ML 100 ML BTL IJ (05:04)
[2024-09-08] MEDS: Normal Saline Flush 10 ML SYR IVP (05:05)
[2024-09-08] MEDS: Normal Saline - Diluent 50 ML VIAL IJ (05:05)
[2024-09-08 05:18] LABS: INR 1.1 (0.9-1.1); PTT Activated 24.7 sec (20.6-30.2)
[2024-09-08 05:21] LABS: ALT 350 U/L (14-59); AST 246 U/L (15-37); Albumin 3.3 g/dL (3.4-5.0); Alkaline Phosphatase 96 U/L (46-116); Anion Gap 10.5 mmol/L (3-11); BUN 9 mg/dL (7-18); Bilirubin, Total 0.89 mg/dL (0.2-1.0); CO2 25.5 mmol/L (21.0-32.0); CREATININE 0.6 mg/dL (0.55-1.02); Calcium 9.2 mg/dL (8.5-10.1); Chloride 104 mmol/L (98-107); Estimated GFR 104.63 (mL/min/1.73m2); Glucose 122 mg/dL (74-106); NT-proBNP 175 pg/mL (<300); Potassium 3.3 mmol/L (3.5-5.1); Sodium 140 mmol/L (136-145); Total Protein 7.2 g/dL (6.4-8.2)
[2024-09-08 05:22] LABS: Troponin I < 4 ng/L (<or=51)
--- NOTE | 2024-09-08 06:11 | NUR.NOTE ---
Nursing Note: pt comes to the ED c/o severe right shoulder pain that woke her up from sleep, the pt also had numbness and tingling that radiated into her chest and jaw. the pt was unable to move her arm without pain. she denies any trauma, but did stated that she was on an inversion table the other day with her arms up, but states she had no pain or discomfort during or after that. She was able to make a fist but unable to lift her arm up. +pulses good cap refill. difficulty getting an IV, MD Quezada placed IV via US. pt became pale and diaphoretic, also after nitro. slight relief from the chest and jaw discomfort with nitro, but not for the shoulder. IVP morphine given, pt to and from CT
[2024-09-08 06:51] LABS: Troponin I 5 ng/L (<or=51)
--- NOTE | 2024-09-08 07:47 | DI.VRAD_ITS ---
PROCEDURE INFORMATION: Exam: CTA Chest With Contrast Exam date and time: 09/08/2024 5:06 AM Age: 59 years old Clinical indication: Right-sided; Patient HX: Severe ripping right chest and shoulder pain TECHNIQUE: Imaging protocol: Computed tomographic angiography of the chest with contrast. Exam focused on the arteries. 3D rendering (Not supervised by radiologist): MIP and/or 3D reconstructed images were created by the technologist. Radiation optimization: All CT scans at this facility use at least one of these dose optimization techniques: automated exposure control; mA and/or kV adjustment per patient size (includes targeted exams where dose is matched to clinical indication); or iterative reconstruction. Contrast material: OMNIPAQUE 350; Contrast volume: 100 ml; Contrast route: INTRAVENOUS (IV); COMPARISON: CR XR CHEST 2V PA LATERAL 11/14/2020 11:40 AM FINDINGS: Pulmonary arteries: Normal. No pulmonary emboli. Aorta: Unremarkable. No aortic aneurysm. No aortic dissection. Lungs: Minimal dependent atelectasis. Pleural spaces: Unremarkable. No pneumothorax. No pleural effusion. Heart: Unremarkable. No cardiomegaly. No pericardial effusion. Lymph nodes: Unremarkable. No enlarged lymph nodes. Intestine: Colonic diverticulosis. Bones/joints: No acute fracture. An 8 mm calcification is seen medial to the right humeral head which may be related to calcific tendinitis. Soft tissues: Unremarkable. IMPRESSION: No acute findings. No evidence of pulmonary emboli, aneurysm or dissection. Small calcification medial to the right humeral head which may be related to calcific tendinitis. Colonic diverticula . Dictated and Authenticated by: Deisy Connolly MD. Ordering:IRIS Yanez MD
[2024-09-08] MEDS: Diclofenac 1% Gel 100 GM TUBE TP (07:57)
== END 2024-09-08 08:09 | disposition home or self-care (01) ==
PROVIDERS: Emergency Provider Student in an Organized Health Care Education/Training Program; PCP Family Medicine
DX: M75.31 Calcific tendinitis of right shoulder (principal); R74.01 Elevation of levels of liver transaminase levels
CPT/HCPCS: 71275; 76942; 80053; 93005; 96374; 96375; 99285; 83605; 83880; 84484; 85025; 85610; 85730; 93010; J1885; J2270; J3490

== ENCOUNTER 2024-09-10 14:20 | Emergency (ER) | payer MEDICAID, SELFPAY ==
[2024-09-10 14:24] VITALS: BP 135/76; PULSE 81; RESP 18; TEMP 36.4; O2SAT 97
--- NOTE | 2024-09-10 15:00 | DI.US_ITS ---
Exam(s) US UPPER EXTREMITY VENOUS RT EXAM: US UPPER EXTREMITY VENOUS RT CLINICAL HISTORY: Whole arm swelling, eval DVT. TECHNIQUE: Ultrasound examination of the right upper extremity venous system(s) is performed using g rayscale, color-flow, and spectral Doppler analysis. COMPARISON: No exams were available for comparison FINDINGS: Right Deep Veins:The visualized internal jugular and subclavian veins are patent. The axillary and b rachial veins are patent and display normal color flow, augmentation and compressibility. Superficial Veins:The visualized cephalic, median cubital and basilic veins are patent and display no rmal color flow, augmentation and compressibility. Soft tissues: Unremarkable. IMPRESSION: No evidence of a right upper extremity deep venous thrombosis. DATA REPOSITORY:
--- NOTE | 2024-09-10 15:13 | ED.GENADUL_ITS ---
Discharge Plan Disposition Patient Disposition: Home Condition: Stable Discharge Details Clinical Impression: Calcific tendinitis of right shoulder, Pain and swelling of right upper extremity Primary Care Provider: Joyce Arroyo ED Provider: Cate William Home Meds and New Rx's Prescriptions: No Action lidocaine [Lidoderm] 5 % adhesive patch,medicated 1 patch Topical Q24H Qty: 15 0RF Discharge Instructions Instructions: Calcific Tendinopathy of the Shoulder (DC), Rotator Cuff Tendinitis Stretching Exercises Additional Instructions: You were seen in the emergency department today for evaluation of ongoing shoulder pain and swelling in your right arm. In our department a full physical examination performed and had an ultrasound that did not show any blood clots to explain the swelling in your arm. You are experiencing symptoms due to your calcific tendinitis, and likely having your arm held in a downward position for the last several days has resulted in some swelling due to poor drainage of the fluid. It is important that you continue to use multimodal pain management, including topical therapies such as lidocaine patches, diclofenac gel, and medic ation such as Tylenol and ibuprofen. Please stagger these medications so you are taking something every 3 hours. An example would be to take 600 mg of ibuprofen with breakfast in the morning, and 3 hours later take 650 or 1000 mg of Tylenol (2 tablets of regular or extra strength). 3 hours after that you would be due for another dose of ibuprofen, and so forth. Please continue to do the stretching exercises including pendulums and wall walks. It is important that you call to reschedule your physical therapy appointment, as well as keep your orthopedics visit. Finally, I have provided you with a short course of oral morphine which you can use for breakthrough pain, but I do recommend that you do so typically at nighttime as this medication can make you feel sleepy. Please use heat or ice as needed, and please follow-up with your primary care provider in the next few days to discuss this visit and any symptoms that change, worsen, or persist. Thank you for allowing us to be part of your care. Discharge Data Discharge Date/Time-TO BE ENTERED AT DEPARTURE: 09/10/24 18:21 HPI General Mode of arrival: ambulatory . Date/Time Provider Initiated Documentation: 09/10/24 14:20 . Limitations to Documentation: no limitations . Information obtained by: patient, family and old records reviewed . HPI Narrative: HPI: This is a 59-year-old female patient presenting for evaluation of right shoulder and arm pain. Of note, the patient was here in the emergency department 2 days ago for the same symptoms, at which time she had a complete cardiac workup including a CTA of her chest that did not show any concerning abnormalities other than evidence of calcific tendinitis, which her symptoms are more consistent with. She was discharged home on multimodal pain management with a plan for follow-up with orthopedics, but presents today with severe worsening of her pain. Noted this morning that her upper extremity felt swollen, down to her fingers. She states that her whole arm feels very sore. States that her last dose of Tylenol was at 5 AM, and she has lidocaine patch in place. the patient has not sustained any additional injury, has been attempting to do pendulum exercises but has had difficulty with range of motion of the arm due to pain. Exam: Gen: Awake and alert, appears uncomfortable HEENT: Non-icteric sclera Neck: Supple Lungs: No apparent respiratory distress, normal respiratory effort. CV: Appears well perfused, strong distal pulses Abdomen: Non-distended MSK: Moves 4 extremities without apparent limitation in ROM with the exception of her right upper extremity. The patient has notable tenderness to palpation over the biceps tendon, has a lidocaine patch over the posterior lateral aspect of the shoulder. She has reproduction of her pain with any range of motion of the shoulder. She has some soreness without deformity, or external signs of trauma to the remainder of her right upper extremity, does have some trace peripheral edema of the right hand compared to the left. She is neurovascularly intact distal to her shoulder pain, with no evidence for sensory loss, motor weakness, or poor perfusion. Skin: Visualized skin without rashes, cyanosis. Neuro: Normal Gait, no obvious focal deficits or facial asymmetry. Speaks in full, clear sentences. Psych: Appropriate for situation. MDM: This is a 59-year-old female patient presenting for evaluation of acute on chronic worsening of her right shoulder pain with right arm swelling. Differential includes but is not limited to calcific tendinitis, certainly considered vascular abnormality such as DVT, the patient had no large vessel abnormality on her CTA performed 2 days ago and I have a lower concern for dissection, arterial occlusion, etc. Considered traumatic injury such as fracture, dislocation, though the patient has no mechanism of injury by which she would have sustained these injuries. No overlying skin changes to suggest cellulitis or infection, shingles, etc. I will provide the patient with multimodal pain management to include Tylenol, Toradol, and a dose of oral morphine. We will obtain an ultrasound of the right upper extremity to evaluate for DVT. ED Course: Ultrasound showed no evidence of DVT, and I suspect the swelling in her arm is due to dependent positioning given the patient's decreased range of motion and ongoing pain. After initial pain management strategies she reports her pain has reduced from a 20 out of 10 to a 10 out of 10 and she is desiring of trialing additional medications. I did establish an IV and provided her with a dose of Dilaudid, which improved her pain but did make her feel nauseated and dizzy. She received a dose of Zofran in the emergency department. We had an extended conversation regarding multimodal pain management in the outpatient environment, rescheduling her physical therapy appointment, and following up with orthopedics for further evaluation. I did provide her with a short take- home course of oral morphine for breakthrough severe pain. At this time, the patient has had a full medical evaluation and is safe for discharge to home. They are hemodynamically stable, ambulatory, and tolerating PO. They are understanding of the follow-up plan and return precautions. They left our facility without incident. Cate William MD Related Data Home Medications ?Medication ?Instructions ?Recorded ?Confirmed lidocaine 5 % topical patch 1 patch topical Q24H #15 ea 09/08/24 (Lidoderm) Previous Rx's ?Medication ?Instructions ?Recorded lidocaine 5 % topical patch 1 patch topical Q24H #15 ea 09/08/24 (Lidoderm) Allergies Allergy/AdvReac Type Severity Reaction Status Date / Time No Known Allergies Allergy Unverified 09/10/24 15:20 General Stated Complaint: Orthopedic BILL: 3 Course Vital Signs Vital signs: Vital Signs Temperature 36.4 C 09/10/24 14:24 Pulse 81 09/10/24 14:24 Respiratory Rate 18 09/10/24 14:24 Blood Pressure 135/76 09/10/24 14:24 Pulse Oximetry 97 09/10/24 14:24 Temperature 36.4 C 09/10/24 14:24 Temperature Source Oral 09/10/24 14:24 Pulse 81 09/10/24 14:24 Respiratory Rate 18 09/10/24 14:24 Blood Pressure 135/76 09/10/24 14:24 Blood Pressure Position Sitting 09/10/24 14:24 Pulse Oximetry 97 09/10/24 14:24 Oxygen Delivery Method Room Air 09/10/24 14:24 Oxygen Flow Rate 0 09/10/24 14:24 Pain Level 10 09/10/24 14:24 Medical Decision Making Quality:SDOH Health Related Social Needs: No Data to Display PFSH All Active Problems (Updated 09/10/24 @ 18:17 by Cate William MD) Pain and swelling of right upper extremity (Acute) Transaminitis (Acute) Calcific tendinitis of right shoulder (Acute) Hyperlipidemia (Acute) Goiter (Chronic) Anxiety (Chronic) Acute electrocardiogram changes (Acute) Discharge planning issues (Acute) DVT prophylaxis (Acute) Chest discomfort (Acute) Numbness and tingling in left arm (Acute) Medical History (Updated 09/10/24 @ 18:17 by Cate William MD) Eating disorder Obesity (BMI 30.0-34.9) Surgical History (Updated 11/14/20 @ 18:23 by Tayler Goodman MD) S/P tonsillectomy No significant past surgical history Family History (Updated 11/14/20 @ 18:27 by Tayler Goodman MD) Mother , at age of 64 from an DE Heart disease Diabetes Hypertension Father Heart disease Diabetes Hypertension Maternal Grandmother Diabetes Maternal Grandfather Diabetes Paternal Grandmother Diabetes Paternal Grandfather Diabetes Self No problems noted. Sister Diabetes Hypertension Sister Diabetes Hypertension Brother Diabetes Hypertension Paternal Aunt Breast cancer Social History (Updated 11/14/20 @ 18:28 by Tayler Goodman MD) Smoking/Tobacco Use Status: Never Smoking risk assessment performed?: Yes Alcohol Intake: current Alcohol Intake frequency: holidays/special occasions only Alcohol type: wine Drug use: Never Substance use type: does not use Housing: house Do you feel safe at home: Yes Do you feel safe in your relationship?: Yes
[2024-09-10] MEDS: MORPHine IR 15 MG TAB PO (15:16)
[2024-09-10] MEDS: Acetaminophen 500 MG TAB 1000 MG PO (15:17)
[2024-09-10] MEDS: Ketorolac 15 MG/ML VIAL IM (15:17)
[2024-09-10] MEDS: HYDROmorphone 2 MG/ML SYR 0.5 MG IVP (17:10)
[2024-09-10 17:37] VITALS: BP 130/64; PULSE 72; RESP 16; O2SAT 99
[2024-09-10] MEDS: Ondansetron 4 MG/2 ML VIAL IVP (17:38)
[2024-09-10] MEDS: MORPHine IR 15 MG TAB, 4 TABS/BTL PO (18:23)
== END 2024-09-10 18:21 | disposition home or self-care (01) ==
PROVIDERS: Emergency Provider Emergency Medicine; PCP Family Medicine
DX: M75.31 Calcific tendinitis of right shoulder (principal); R74.01 Elevation of levels of liver transaminase levels
CPT/HCPCS: 36573; 96372; 96374; 96375; 99284; 93971; J1171; J1885; J2405

== ENCOUNTER 2024-09-15 11:18 | Outpatient (REF) | payer MEDICAID, SELFPAY ==
[2024-09-15 16:31] LABS: ALT 248 U/L (14-59); AST 158 U/L (15-37); Albumin 3.7 g/dL (3.4-5.0); Alkaline Phosphatase 107 U/L (46-116); Anion Gap 10.4 mmol/L (3-11); BUN 8 mg/dL (7-18); Bilirubin, Total 0.63 mg/dL (0.2-1.0); CO2 26.6 mmol/L (21.0-32.0); CREATININE 0.7 mg/dL (0.55-1.02); Calcium 9.5 mg/dL (8.5-10.1); Chloride 104 mmol/L (98-107); Estimated GFR 100.81 (mL/min/1.73m2); Glucose 90 mg/dL (74-106); Potassium 4.4 mmol/L (3.5-5.1); Sodium 141 mmol/L (136-145); Total Protein 8.3 g/dL (6.4-8.2)
[2024-09-16 19:50] LABS: Hepatitis A Antibody IgM Negative (Negative); Hepatitis B Core Antibody Negative (Negative); Hepatitis B surface Ag Negative (Negative); Hepatitis C Ab w Rflx HCV PCR Negative (Negative)
== END 2024-09-15 11:19 | disposition home or self-care (01) ==
LOC: NCHCN 11:18
PROVIDERS: PCP Family Medicine; Visit Provider Family Medicine
DX: R74.01 Elevation of levels of liver transaminase levels (principal)
CPT/HCPCS: 80053; 86704; 86709; 86803; 87340

== ENCOUNTER 2024-10-05 15:24 | Outpatient (CLI) | payer MEDICAID, SELFPAY ==
--- NOTE | 2024-10-05 09:30 | DI.RAD_ITS ---
Exam(s) XR SHOULDER RT COMPLETE 2+V EXAM: XR SHOULDER RT COMPLETE 2+V CLINICAL HISTORY: RIGHT SHOULDER PAIN. TECHNIQUE: 2D digital imaging was performed. COMPARISON: No exams were available for comparison FINDINGS: Two views No evidence of acute fracture or dislocation nor diminution of the subacromial space. However, on th e axial view there is soft tissue calcification adjacent to the greater tuberosity consistent with ca lcific rotator cuff tendinitis. There are mild degenerative changes in the AC joint noted. No obvio us degenerative changes glenohumeral joint. Bone density is normal. No osseous lesions IMPRESSION: Soft tissue calcification seen anteriorly on the axial view insert rotator cuff tendinitis. DATA REPOSITORY: RADIATION DOSE DELIVERED:
== END 2024-10-05 15:25 | disposition home or self-care (01) ==
LOC: DIORS 15:25
PROVIDERS: PCP Family Medicine; Visit Provider Student in an Organized Health Care Education/Training Program
DX: M79.601 Pain in right arm (principal); M79.89 Other specified soft tissue disorders
CPT/HCPCS: 73030

== ENCOUNTER 2025-01-25 13:37 | Outpatient (REF) | payer MEDICAID, SELFPAY ==
[2025-01-25 16:31] LABS: Abs Immature Grans 0.03 10^3/uL (0.0-0.06); Absolute Basophil Count 0.06 10^3/uL (0.0-0.2); Absolute Eosinophil Count 0.22 10^3/uL (0.0-0.7); Absolute Lymphocyte Count 0.84 10^3/uL (1.2-3.4); Absolute Monocyte Count 0.63 10^3/uL (0.1-0.8); Absolute Neutrophil Count 3.28 10^3/uL (1.2-6.7); Basophils % 1.2 %; Eosinophils % 4.3 %; HCT 39.6 % (36.0-46.0); HGB 13.6 g/dL (11.2-15.7); Immature Grans % 0.6 %; Lymphocytes % 16.6 %; MCH 31.9 pg (27.0-33.0); MCHC 34.3 % (32.0-36.0); MCV 93 fL (80-95); MPV 9.6 fL (8.0-11.0); Monocytes % 12.5 %; Neutrophils % 64.8 %; Platelet Count 236 10^3/uL (130-400); RBC 4.26 10^6/uL (3.93-5.22); RDW-SD 47.6 fL; WBC 5.06 10^3/uL (4.4-10.8)
[2025-01-25 17:20] LABS: Iron 308 ug/dL (50-170); Total Iron Binding Capacity 331 ug/dL (250-450); Transferrin Sat 93 % (15-50)
[2025-01-25 18:28] LABS: Albumin 3.4 g/dL (3.4-5.0); Alkaline Phosphatase 191 U/L (46-116); Anion Gap 10.4 mmol/L (3-11); BUN 8 mg/dL (7-18); Bilirubin, Total 11.6 mg/dL (0.2-1.0); CO2 24.6 mmol/L (21.0-32.0); CREATININE 0.5 mg/dL (0.55-1.02); Calcium 8.9 mg/dL (8.5-10.1); Chloride 101 mmol/L (98-107); Estimated GFR 109.33 (mL/min/1.73m2); Glucose 96 mg/dL (74-106); Potassium 3.8 mmol/L (3.5-5.1); Sodium 136 mmol/L (136-145); Total Protein 7.9 g/dL (6.4-8.2)
[2025-01-25 18:39] LABS: Ferritin > 2000 ng/mL (8-252)
[2025-01-25 19:01] LABS: GGT 293 U/L (5-55)
[2025-01-25 19:30] LABS: ALT 3945 U/L (14-59); AST 3664 U/L (15-37)
[2025-01-27 12:41] LABS: ANA Interpretation Positive (Negative)
[2025-01-28 12:11] LABS: Smooth Muscle Ab Screen Negative (Negative)
[2025-01-31 09:58] LABS: Result Summary NEGATIVE; Specimen WB Whole Blood
== END 2025-01-25 13:38 | disposition home or self-care (01) ==
LOC: NCHCN 13:37
PROVIDERS: PCP Family Medicine; Visit Provider Family Medicine
DX: R30.0 Dysuria (principal); R74.8 Abnormal levels of other serum enzymes; R79.89 Other specified abnormal findings of blood chemistry
CPT/HCPCS: 80053; 81256; 86256; 82728; 82977; 83540; 83550; 84443; 85025; 86038; 86255; 87086

== ENCOUNTER 2025-02-07 11:28 | Outpatient (REF) | payer MEDICAID, SELFPAY ==
[2025-02-07 17:43] LABS: AST 431 U/L (15-37); Albumin 3.1 g/dL (3.4-5.0); Alkaline Phosphatase 155 U/L (46-116); Bilirubin, Direct 3.8 mg/dL (0.0-0.2); Bilirubin, Total 4.7 mg/dL (0.2-1.0); Total Protein 7.4 g/dL (6.4-8.2)
[2025-02-07 18:31] LABS: ALT 1045 U/L (14-59)
[2025-02-08 09:30] LABS: IgG 1943 mg/dL (610-1616)
== END 2025-02-07 11:29 | disposition home or self-care (01) ==
LOC: LBN 11:28
PROVIDERS: PCP Family Medicine; Visit Provider Family Medicine
DX: R17 Unspecified jaundice (principal); R79.89 Other specified abnormal findings of blood chemistry; R74.01 Elevation of levels of liver transaminase levels; N95.0 Postmenopausal bleeding; B17.9 Acute viral hepatitis, unspecified
CPT/HCPCS: 80076; 82784

== ENCOUNTER 2025-02-14 18:21 | Outpatient (REF) | payer MEDICAID, SELFPAY ==
[2025-02-14 15:23] LABS: HCT 35.4 % (36.0-46.0); HGB 11.8 g/dL (11.2-15.7); MCHC 33.3 % (32.0-36.0); MCV 96 fL (80-95); MPV 10.3 fL (8.0-11.0); Platelet Count 275 10^3/uL (130-400); RBC 3.69 10^6/uL (3.93-5.22); RDW 15.2 % (11.7-14.6); RDW-SD 53.5 fL; WBC 7.38 10^3/uL (4.4-10.8)
[2025-02-14 16:07] LABS: ALT 479 U/L (14-59); AST 189 U/L (15-37); Albumin 3.1 g/dL (3.4-5.0); Alkaline Phosphatase 110 U/L (46-116); Anion Gap 7.4 mmol/L (3-11); BUN 11 mg/dL (7-18); Bilirubin, Total 2.5 mg/dL (0.2-1.0); CO2 26.6 mmol/L (21.0-32.0); CREATININE 0.8 mg/dL (0.55-1.02); Calcium 8.7 mg/dL (8.5-10.1); Chloride 104 mmol/L (98-107); Estimated GFR 85.35 (mL/min/1.73m2); Glucose 166 mg/dL (74-106); Potassium 3.8 mmol/L (3.5-5.1); Sodium 138 mmol/L (136-145); Total Protein 7.1 g/dL (6.4-8.2)
[2025-02-15 08:32] LABS: IgG 1481 mg/dL (610-1616)
== END 2025-02-14 18:22 | disposition home or self-care (01) ==
LOC: LBN 18:21
PROVIDERS: PCP Family Medicine; Visit Provider Internal Medicine Gastroenterology
DX: R17 Unspecified jaundice (principal); R79.89 Other specified abnormal findings of blood chemistry; R74.01 Elevation of levels of liver transaminase levels; B17.9 Acute viral hepatitis, unspecified; N95.0 Postmenopausal bleeding
CPT/HCPCS: 80053; 82784; 85027

== ENCOUNTER 2025-02-21 17:54 | Outpatient (REF) | payer MEDICAID, SELFPAY ==
[2025-02-21 15:52] LABS: ALT 258 U/L (14-59); AST 108 U/L (15-37); Albumin 3.3 g/dL (3.4-5.0); Alkaline Phosphatase 94 U/L (46-116); Bilirubin, Direct 1.6 mg/dL (0.0-0.2); Bilirubin, Total 1.8 mg/dL (0.2-1.0); Total Protein 6.9 g/dL (6.4-8.2)
[2025-02-22 10:46] LABS: IgG 1239 mg/dL (610-1616)
== END 2025-02-21 17:55 | disposition home or self-care (01) ==
LOC: LBN 17:54
PROVIDERS: PCP Family Medicine; Visit Provider Internal Medicine
DX: R17 Unspecified jaundice (principal); R79.89 Other specified abnormal findings of blood chemistry; R74.01 Elevation of levels of liver transaminase levels; B17.9 Acute viral hepatitis, unspecified; N95.0 Postmenopausal bleeding
CPT/HCPCS: 80076; 82784

== ENCOUNTER 2025-02-28 13:52 | Outpatient (REF) | payer MEDICAID, SELFPAY ==
[2025-02-28 14:58] LABS: ALT 169 U/L (14-59); AST 85 U/L (15-37); Albumin 3.3 g/dL (3.4-5.0); Alkaline Phosphatase 88 U/L (46-116); Bilirubin, Direct 1.0 mg/dL (0.0-0.2); Bilirubin, Total 1.2 mg/dL (0.2-1.0); Total Protein 6.9 g/dL (6.4-8.2)
== END 2025-02-28 13:53 | disposition home or self-care (01) ==
LOC: LBN 13:52
PROVIDERS: PCP Family Medicine; Visit Provider Internal Medicine
DX: R17 Unspecified jaundice (principal); R79.89 Other specified abnormal findings of blood chemistry; R74.01 Elevation of levels of liver transaminase levels; B17.9 Acute viral hepatitis, unspecified; N95.0 Postmenopausal bleeding
CPT/HCPCS: 80076; 82784

== ENCOUNTER 2025-03-29 15:35 | Outpatient (REF) | payer MEDICAID, SELFPAY ==
[2025-03-29 17:23] LABS: ALT 66 U/L (14-59); AST 47 U/L (15-37); Albumin 3.6 g/dL (3.4-5.0); Alkaline Phosphatase 76 U/L (46-116); Bilirubin, Direct 0.3 mg/dL (0.0-0.2); Bilirubin, Total 0.6 mg/dL (0.2-1.0); Total Protein 7.0 g/dL (6.4-8.2)
[2025-03-30 09:09] LABS: HBs Antibody, Quant <3.1 mIU/mL (See Note); Hepatitis B Surface Ab Negative (See Note)
[2025-03-30 10:30] LABS: Hep A Total Ab w Rflx IgM Negative (Negative)
== END 2025-03-29 15:36 | disposition home or self-care (01) ==
LOC: NCHCN 15:35
PROVIDERS: PCP Family Medicine; Visit Provider Family Medicine
DX: K75.4 Autoimmune hepatitis (principal)
CPT/HCPCS: 80076; 86706; 86709

== ENCOUNTER 2025-04-26 16:08 | Outpatient (REF) | payer MEDICAID, SELFPAY ==
[2025-04-26 17:07] LABS: ALT 36 U/L (14-59); AST 29 U/L (15-37); Albumin 3.6 g/dL (3.4-5.0); Alkaline Phosphatase 86 U/L (46-116); Bilirubin, Direct 0.1 mg/dL (0.0-0.2); Bilirubin, Total 0.4 mg/dL (0.2-1.0); Total Protein 7.1 g/dL (6.4-8.2)
== END 2025-04-26 16:09 | disposition home or self-care (01) ==
LOC: LBN 16:08
PROVIDERS: PCP Family Medicine
DX: R17 Unspecified jaundice (principal); R79.89 Other specified abnormal findings of blood chemistry; R74.01 Elevation of levels of liver transaminase levels; B17.9 Acute viral hepatitis, unspecified; N95.0 Postmenopausal bleeding
CPT/HCPCS: 80076

== ENCOUNTER 2025-05-27 15:28 | Outpatient (REF) | payer MEDICAID, SELFPAY ==
[2025-05-27 15:29] LABS: ALT 36 U/L (14-59); AST 39 U/L (15-37); Albumin 4.1 g/dL (3.4-5.0); Alkaline Phosphatase 104 U/L (46-116); Bilirubin, Direct 0.2 mg/dL (0.0-0.2); Bilirubin, Total 0.6 mg/dL (0.2-1.0); Total Protein 7.7 g/dL (6.4-8.2)
== END 2025-05-27 15:29 | disposition home or self-care (01) ==
LOC: NCHCN 15:28
PROVIDERS: Internal Medicine; PCP Family Medicine; Visit Provider Family Medicine
DX: R17 Unspecified jaundice (principal); R79.89 Other specified abnormal findings of blood chemistry; R74.01 Elevation of levels of liver transaminase levels; B17.9 Acute viral hepatitis, unspecified; N95.0 Postmenopausal bleeding
CPT/HCPCS: 80076; 82784

== ENCOUNTER 2025-07-04 13:52 | Outpatient (REF) | payer MEDICAID, SELFPAY ==
[2025-07-04 15:20] LABS: HCT 47.6 % (36.0-46.0); HGB 15.6 g/dL (11.2-15.7); MCH 29.9 pg (27.0-33.0); MCHC 32.8 % (32.0-36.0); MCV 91 fL (80-95); MPV 9.3 fL (8.0-11.0); Platelet Count 280 10^3/uL (130-400); RBC 5.22 10^6/uL (3.93-5.22); RDW 12.8 % (11.7-14.6); RDW-SD 42.7 fL; WBC 8.04 10^3/uL (4.4-10.8)
[2025-07-04 15:44] LABS: ALT 30 U/L (14-59); AST 33 U/L (15-37); Albumin 4.0 g/dL (3.4-5.0); Alkaline Phosphatase 105 U/L (46-116); Anion Gap 7.2 mmol/L (3-11); BUN 11 mg/dL (7-18); Bilirubin, Total 0.7 mg/dL (0.2-1.0); CO2 29.8 mmol/L (21.0-32.0); Calcium 9.2 mg/dL (8.5-10.1); Chloride 102 mmol/L (98-107); Glucose 124 mg/dL (74-106); Potassium 4.5 mmol/L (3.5-5.1); Sodium 139 mmol/L (136-145); Total Protein 8.0 g/dL (6.4-8.2)
== END 2025-07-04 13:53 | disposition home or self-care (01) ==
LOC: LBN 13:52
PROVIDERS: PCP Internal Medicine Gastroenterology; Visit Provider Internal Medicine Gastroenterology
DX: K75.4 Autoimmune hepatitis (principal)
CPT/HCPCS: 80053; 85027